=== PATIENT | female | born 1945 | race Caucasian/White ===

== ENCOUNTER 2017-07-18 15:10 | Observation (INO) | payer MEDICARE, BC ==
[~2017-07-18] VITALS: Ht 162.6 cm; Wt 77.3 kg
[2017-07-18 15:49] LABS: BASO % 0.3 % (0.0-2.0); EOS # 0.1 (0.0-0.7); EOS % 0.7 % (0-4.0); GRAN # 3.9 (1.4-6.5); GRAN % 57.8 % (42.2-75.2); HEMATOCRIT 41.2 % (37.0-47.0); HEMOGLOBIN 13.5 g/dl (12.5-16.0); LYMPH # 2.2 (1.2-3.4); LYMPH % 32.1 % (20.0-51.0); MEAN CELL VOLUME 89 fl (80.0-100.0); MEAN CORPUSCULAR HEMOGLOBIN 29 pg (27.0-31.0); MEAN CORPUSCULAR HGB CONC 33 g/dl (33.0-37.0); MEAN PLATELET VOLUME 9.5 fl (7.4-10.4); MONO # 0.6 (0.1-0.6); MONO % 8.8 % (1.7-9.3); PLATELET COUNT 185 K/mm3 (130-400); RED BLOOD COUNT 4.64 M/mm3 (4.10-5.30); REDCELL DISTRIBUTION WIDTH-CV 13.3 % (11.5-14.5)
[2017-07-18 15:59] LABS: ALANINE AMINOTRANSFERASE 32 U/L (9-52); ALBUMIN 3.8 gm/dL (3.5-5.0); ALKALINE PHOSPHATASE 71 U/L (50-136); ANION GAP 10 mmol/L (7-16); AST,SGOT 30 U/L (15-37); BILIRUBIN,TOTAL 0.3 mg/dL (0.0-1.0); BLOOD UREA NITROGEN 20 mg/dL (7-17); C-REACTIVE PROTEIN 0.7 mg/dL (0.0-0.9); CALCIUM 8.8 mg/dL (8.4-10.2); CARBON DIOXIDE 22 mmol/L (22-30); CHLORIDE 109 mmol/L (98-107); CREATININE, serum 1.34 mg/dL (0.52-1.25); GLUCOSE 93 mg/dL (74-106); POTASSIUM 3.6 mmol/L (3.4-5.0); SODIUM 141 mmol/L (137-145); TOTAL PROTEIN 6.6 gm/dL (6.4-8.2)
[2017-07-18 16:08] LABS: TROPONIN-I < 0.012 ng/mL (0.000-0.034)
[2017-07-18 16:13] LABS: PROLACTIN 87.4 ng/mL (3.0-18.6)
[2017-07-18 16:15] VITALS: BP 110/63; PULSE 65
[2017-07-18 16:21] LABS: COLLECTION METHOD CLEAN CATCH
[2017-07-18 16:31] LABS: PH 6 (5-8); URINE APPEARANCE Clear; URINE BILIRUBIN Negative (NEGATIVE); URINE BLOOD 1+ (NEGATIVE); URINE COLOR Straw; URINE GLUCOSE Negative (NEGATIVE); URINE KETONE Negative (NEGATIVE); URINE LEUKOCYTE ESTERASE 1+ (NEGATIVE); URINE NITRATE Negative (NEGATIVE); URINE PROTEIN(semi-quant) Negative (NEGATIVE); URINE UROBILINOGEN Negative (NEGATIVE)
[2017-07-18 16:38] LABS: MUCOUS Present /lpf; SQUAMOUS EPITHELIAL 0-2 /hpf; URINE RBC None Seen /hpf
[2017-07-18] MEDS ORDERED: ACCUPRIL40MGTAB PO (16:39)
[2017-07-18] MEDS ORDERED: DEMADEX5 MG PO (16:40)
[2017-07-18] MEDS ORDERED: ZOCOR 10MG10 MG PO (16:40)
[2017-07-18] MEDS ORDERED: GLUCOSAMINE & C1 TAB PO (16:41)
[2017-07-18] MEDS ORDERED: OMEGA-3 1000 MG1 CAP PO (16:41)
[2017-07-18] MEDS ORDERED: CATAPRES 0.1MG0.1 MG PO (16:41)
[2017-07-18] MEDS ORDERED: TIAZAC180 MG PO (17:43)
[2017-07-18 17:58] VITALS: BP 99/68; PULSE 82; TEMP 98.4
[2017-07-18 19:54] VITALS: BP 114/78; PULSE 65; TEMP 99
[2017-07-18 21:50] LABS: MAGNESIUM 2.2 mg/dL (1.6-2.3)
[2017-07-18 22:21] LABS: TSH w REFLEX 8.38 uIU/mL (0.465-4.680)
[2017-07-18 23:50] VITALS: BP 98/55; PULSE 63; TEMP 99.8
[2017-07-19 04:14] VITALS: BP 101/52; PULSE 65; TEMP 98.7
[2017-07-19 06:55] LABS: BASO % 0.5 % (0.0-2.0); EOS # 0.1 (0.0-0.7); EOS % 1.4 % (0-4.0); GRAN # 3.4 (1.4-6.5); GRAN % 52.9 % (42.2-75.2); HEMATOCRIT 37.4 % (37.0-47.0); HEMOGLOBIN 12.4 g/dl (12.5-16.0); LYMPH # 2.3 (1.2-3.4); LYMPH % 35.8 % (20.0-51.0); MEAN CELL VOLUME 89 fl (80.0-100.0); MEAN CORPUSCULAR HEMOGLOBIN 30 pg (27.0-31.0); MEAN CORPUSCULAR HGB CONC 33 g/dl (33.0-37.0); MEAN PLATELET VOLUME 9.8 fl (7.4-10.4); MONO # 0.6 (0.1-0.6); MONO % 9.2 % (1.7-9.3); PLATELET COUNT 186 K/mm3 (130-400); RED BLOOD COUNT 4.21 M/mm3 (4.10-5.30); REDCELL DISTRIBUTION WIDTH-CV 13.4 % (11.5-14.5)
[2017-07-19 07:14] LABS: ANION GAP 6 mmol/L (7-16); BLOOD UREA NITROGEN 12 mg/dL (7-17); CALCIUM 8.5 mg/dL (8.4-10.2); CARBON DIOXIDE 20 mmol/L (22-30); CHLORIDE 112 mmol/L (98-107); CREATININE, serum 0.87 mg/dL (0.52-1.25); GLUCOSE 94 mg/dL (74-106); POTASSIUM 3.8 mmol/L (3.4-5.0); SODIUM 139 mmol/L (137-145)
[2017-07-19 07:25] LABS: TROPONIN-I < 0.012 ng/mL (0.000-0.034)
[2017-07-19 07:35] VITALS: BP 148/85; PULSE 65; TEMP 98.6
[2017-07-19 11:29] VITALS: BP 154/78; PULSE 54; TEMP 97.5
== END 2017-07-19 16:31 | disposition home or self-care (01) ==
LOC: COL.ER 15:10 → MEDICAL 17:12
PROVIDERS: Emergency Medicine; Family Medicine; Nurse Practitioner Family
DX: R55 Syncope and collapse (principal); I10 Essential (primary) hypertension; E78.5 Hyperlipidemia, unspecified; Z96.643 Presence of artificial hip joint, bilateral; Z87.891 Personal history of nicotine dependence; N17.9 Acute kidney failure, unspecified; J01.90 Acute sinusitis, unspecified
CPT/HCPCS: G0378; G8978-GP; G8979-GP; J1644; J7030; Q9967